=== PATIENT | male | born 1990 | race Caucasian/White ===

== ENCOUNTER 2019-01-15 08:29 | Emergency (ER) | payer OTHER, BC ==
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
[2019-01-15 11:07] VITALS: BP 113/65
== END 2019-01-15 11:08 | disposition home or self-care (01) ==
LOC: ER 08:29
DX: M79.645 Pain in left finger(s) (principal); M79.642 Pain in left hand
CPT/HCPCS: 99283